=== PATIENT | male | born 1960 | race Caucasian/White ===

== ENCOUNTER 2023-11-12 16:41 | Inpatient (IN) | payer MEDICARE, MEDICAID ==
[~2023-11-12] VITALS: Ht 180.3 cm; Wt 95.5 kg
[2023-11-12] MEDS ORDERED: fentaNYL 50 MCG/ML 2 ML VIAL IV ONE (17:00)
[2023-11-12] MEDS ORDERED: oxyCODONE 5 MG TAB PO PRN (19:15)
[2023-11-12] MEDS ORDERED: Naloxone 0.4 MG/ML VIAL IV PRN (19:15)
[2023-11-12] MEDS ORDERED: HYDROmorphone 0.5 MG/0.5 ML SYRINGE IV PRN (19:15)
[2023-11-12 19:25] LABS: BASO # 0.1 K/mm3 (0.0-0.2); BASO % 0.5 % (0.0-2.0); EOS # 0.1 K/mm3 (0.0-0.7); EOS % 1.1 % (0.0-4.0); GRAN # 9.4 K/mm3 (1.4-6.5); GRAN % 76.1 % (42.2-75.2); HEMATOCRIT 40.9 % (42.0-52.0); LYMPH % 16.5 % (20.0-51.0); MEAN CELL VOLUME 88 fl (80.0-100.0); MEAN CORPUSCULAR HEMOGLOBIN 28 pg (27-31); MEAN CORPUSCULAR HGB CONC 32 g/dl (33.0-37.0); MEAN PLATELET VOLUME 10.2 fl (7.4-10.4); MONO # 0.7 K/mm3 (0.1-0.6); MONO % 5.3 % (1.7-9.3); PLATELET COUNT 221 K/mm3 (130-400); RED BLOOD COUNT 4.67 M/mm3 (4.20-5.60); REDCELL DISTRIBUTION WIDTH-CV 14.4 % (11.5-14.5)
[2023-11-12] MEDS ORDERED: HYDROmorphone 0.5 MG/0.5 ML SYRINGE IV ONE (19:30)
[2023-11-12] MEDS ORDERED: VOLTAREN 75 DR75 MG PO (19:31)
[2023-11-12] MEDS ORDERED: CAPOTEN 12.512.5 MG PO (19:31)
[2023-11-12] MEDS ORDERED: LOPRESSOR 550 MG/TAB PO (19:32)
[2023-11-12] MEDS ORDERED: DESYREL 50MG50 MG PO (19:32)
[2023-11-12] MEDS ORDERED: FLEXERIL 1010 MG/TAB PO (19:32)
[2023-11-12] MEDS ORDERED: LIPITOR 80MG80 MG PO (19:32)
[2023-11-12] MEDS ORDERED: XARELTO20 MG PO (19:33)
[2023-11-12] MEDS ORDERED: ZETIA 10MG TAB10 MG PO (19:33)
[2023-11-12] MEDS ORDERED: ZOLOFT 100MG100 MG PO (19:33)
[2023-11-12] MEDS ORDERED: SEROQUEL50 MG PO (19:33)
[2023-11-12] MEDS ORDERED: ASPIRIN 81M81 MG/TA2 PO (19:37)
[2023-11-12] MEDS ORDERED: FERROUSAL325 MG PO (19:38)
[2023-11-12 19:41] LABS: ALBUMIN 4.2 g/dL (3.4-4.8); BILIRUBIN,TOTAL 0.4 mg/dL (0.2-1.2); CALCIUM 9.2 mg/dL (8.4-10.2); CREATININE, serum 1.23 mg/dL (0.72-1.25); POTASSIUM 5.3 mEq/L (3.5-4.5); TOTAL PROTEIN 7.3 g/dl (6.2-8.1)
[2023-11-12] MEDS ORDERED: Cyclobenzaprine 10 MG TAB PO PRN (19:45)
[2023-11-12] MEDS ORDERED: Acetaminophen 500 MG TAB PO SCH (20:15)
[2023-11-12 21:00] LABS: INR 1.4 (0.8-3.0); PROTHROMBIN TIME 14.7 SECONDS (9.7-12.8)
[2023-11-12] MEDS ORDERED: Metoprolol Tartrate 50 MG TAB PO SCH (21:00)
[2023-11-12] MEDS ORDERED: Atorvastatin 80 MG TAB PO SCH (21:00)
[2023-11-12] MEDS ORDERED: QUEtiapine 25 MG TAB PO SCH (21:00)
[2023-11-12] MEDS ORDERED: traZODone 100 MG TAB PO SCH (21:00)
[2023-11-13] VITALS (10 sets, daily range): BP systolic 134–203; BP diastolic 66–94; PULSE 62–89; TEMP 97.4–98.1
[2023-11-13] MEDS ORDERED: Ezetimibe 10 MG TAB PO SCH (09:00)
[2023-11-13] MEDS ORDERED: Ferrous Sulfate 325 MG TAB PO SCH (09:00)
[2023-11-13] MEDS ORDERED: Sertraline 100 MG TAB PO SCH (09:00)
[2023-11-13 10:46] LABS: COLLECTION METHOD CLEAN CATCH
[2023-11-13] MEDS ORDERED: hydrALAZINE 20 MG/ML 1 ML VIAL IV PRN (11:00)
[2023-11-13 11:02] LABS: PH 5.5 (5.0-8.5); URINE APPEARANCE CLEAR (CLEAR/HAZY); URINE BLOOD NEGATIVE (NEGATIVE); URINE COLOR YELLOW (YELLOW); URINE GLUCOSE NEGATIVE (NEGATIVE); URINE KETONE NEGATIVE (NEGATIVE); URINE NITRATE NEGATIVE (NEGATIVE); URINE PROTEIN(semi-quant) NEGATIVE (NEGATIVE); URINE UROBILINOGEN 0.2 E.U/dL (0.2-1.0)
--- NOTE | 2023-11-13 11:06 | NUR ---
PATIENT ARRIVED TO FLOOR FROM ED @ 0930. BP ELEVATED SEE CHART. PATIENT COMPLIANING OF PAIN 8/10 PAIN MEDS AND MORNING MEDS GIVEN ORDERED. ADMISSION, ASSESSMENT, AND MED REC COMPLETED. PATIENT HAS NO OTHER NEEDS AT THIS TIME. CALL LIGHT IN REACH
[2023-11-13] MEDS ORDERED: Regadenoson 0.08 MG/ML 5 ML SYRINGE IV SCH (13:40)
[2023-11-13] MEDS ORDERED: HYDROmorphone 0.5 MG/0.5 ML SYRINGE IV PRN (16:30)
--- NOTE | 2023-11-13 16:39 | NUR ---
ARM SLING APPLIED TO RT ARM.
--- NOTE | 2023-11-13 21:00 | NUR ---
BP 203/76. BASSAM ROJAS NOTIFIED. OKAY TO GIVE SECOND DOSE OF HYDRALAZINE IV PRN NOW. WILL MONITOR. THE PATIENT IS REFUSING PAIN MEDICATIONS AT THIS TIME. THE PATIENT WAS EDUCATED REGARDING THE NEED FOR PAIN CONTROL AND THE SIDE EFFECTS OF PAIN ARE HYPERTENSION. THE PATIENT STILL REFUSED PAIN MEDIATION INTERVENTIONS AT THIS TIME. WILL MONITOR.
[2023-11-14] VITALS (9 sets, daily range): BP systolic 103–158; BP diastolic 59–90; PULSE 66–95; TEMP 97.5–98.4
--- NOTE | 2023-11-14 06:30 | NUR ---
BASSAM Fierro called and stated that pt will not go to surgery until tomorrow 11/14 around 0730. Notified primary nurse of this
--- NOTE | 2023-11-14 06:36 | NUR ---
THE PATIENTS BP CAME DOWN WITH PRN HYDRALAZINE AND PO SCHEDULED METOPROLOL AND PAIN CONTROL. THE PATIENT RESTED WELL ALL NIGHT AND RATED HIS PAIN THIS MORNING AT 5/10. THE PATIENT IS HOPING TO TRANSFER TO [facility] TODAY AND WOULD LIKE TO TALK WITH THE DOCTOR ABOUT IT TODAY. THE PATIENT WAS MADE NPO OVER NIGHT WITH THE THOUGHT THAT HE MAY HAVE SURGERY TODAY. CURRENTLY THE PATIENT IS COMFORTABLE AND RESTING IN BED. THE BED ALARM IS ON, BED IS IN THE LOW POSITION AND THE CALL LIGHT IS WITHIN REACH.
[2023-11-14 06:37] LABS: BASO % 0.3 % (0.0-2.0); EOS % 0.3 % (0.0-4.0); GRAN # 7.2 K/mm3 (1.4-6.5); GRAN % 64.8 % (42.2-75.2); HEMOGLOBIN 11.9 g/dl (13.5-18.0); LYMPH # 2.5 K/mm3 (1.2-3.4); LYMPH % 22.8 % (20.0-51.0); MEAN CELL VOLUME 85 fl (80.0-100.0); MEAN CORPUSCULAR HEMOGLOBIN 28 pg (27-31); MEAN CORPUSCULAR HGB CONC 33 g/dl (33.0-37.0); MEAN PLATELET VOLUME 10.5 fl (7.4-10.4); MONO # 1.3 K/mm3 (0.1-0.6); MONO % 11.5 % (1.7-9.3); PLATELET COUNT 200 K/mm3 (130-400); RED BLOOD COUNT 4.24 M/mm3 (4.20-5.60); REDCELL DISTRIBUTION WIDTH-CV 14.7 % (11.5-14.5)
[2023-11-14 06:42] LABS: HEMATOCRIT 35.9 % (42.0-52.0)
[2023-11-14 06:49] LABS: ALBUMIN 3.7 g/dL (3.4-4.8); BILIRUBIN,TOTAL 0.6 mg/dL (0.2-1.2); CALCIUM 9.1 mg/dL (8.4-10.2); CREATININE, serum 0.99 mg/dL (0.72-1.25); MAGNESIUM 2.1 mg/dL (1.6-2.6); POTASSIUM 3.9 mEq/L (3.5-4.5); TOTAL PROTEIN 6.8 g/dl (6.2-8.1)
--- NOTE | 2023-11-14 09:27 | NUR ---
SHIFT ASSESSMENT COMPLETE. VSS. PATIENT AWAKE IN BED WATCHING TV. ALL MORNING MEDS GIVEN ORDERED. PATIENT REPORTED BURNING PAIN 6/10 IN THE RIGHT LEG, PAIN MEDS GIVEN ORDERED. PATIENT HAS NO OTHER CONCERNS AT THIS TIME. FALL PRECAUTIONS IN PLACE AND CALL LIGHT IN REACH
--- NOTE | 2023-11-14 11:14 | NUR ---
electronics utility worker met with patient to discuss discharge planning. Patient expressed he was wanting to transfer to [place] to complete his surgery. SW spoke with patient regarding the cost of transferring would likely be out of pocket depending on his insurance. Patient stated he would stay at [facility] for his surgery and would like to return to [place] afterwards. SW explained patient would be evaluated by PT after surgery to determine if he needs rehab at a facility before returning home. SW discussed IPR and SNF, patient was open to [facility] if needed. SW explained she would follow up regarding PT recommendations after his surgery. SW completed assessment with patient. Patient lives in [place] by himself. Patient's sister, Lynn, P# [phone] is his next of kin. PCP is at the [facility], Pharmacy is [facility] or [facility]. No issues affording medications. Insurance is Medicare Aetna. NO DPOA-HC. No DME and reports to be independent with ADLS prior to hospitalization. Patient has a form of transportation to and from appointments. Patient would like to return home if possible at discharge but is open to [place] [facility] or facilities in [place] for rehab. Discharge plan: TBD surgery, PT/OT recommendations
[2023-11-14] MEDS ORDERED: LR 1,000 ML IV SCH (16:30)
[2023-11-15] VITALS (17 sets, daily range): BP systolic 108–186; BP diastolic 53–100; PULSE 54–98; TEMP 97.6–99.8
[2023-11-15] MEDS ORDERED: LR 1,000 ML IV SCH (04:00)
[2023-11-15 06:09] LABS: BASO # 0.1 K/mm3 (0.0-0.2); BASO % 0.5 % (0.0-2.0); EOS # 0.5 K/mm3 (0.0-0.7); EOS % 4.5 % (0.0-4.0); GRAN # 6.4 K/mm3 (1.4-6.5); GRAN % 58.6 % (42.2-75.2); HEMATOCRIT 37.6 % (42.0-52.0); HEMOGLOBIN 12.2 g/dl (13.5-18.0); LYMPH # 2.7 K/mm3 (1.2-3.4); LYMPH % 24.6 % (20.0-51.0); MEAN CELL VOLUME 85 fl (80.0-100.0); MEAN CORPUSCULAR HEMOGLOBIN 28 pg (27-31); MEAN CORPUSCULAR HGB CONC 32 g/dl (33.0-37.0); MEAN PLATELET VOLUME 10.6 fl (7.4-10.4); MONO # 1.3 K/mm3 (0.1-0.6); MONO % 11.5 % (1.7-9.3); PLATELET COUNT 183 K/mm3 (130-400); RED BLOOD COUNT 4.42 M/mm3 (4.20-5.60); REDCELL DISTRIBUTION WIDTH-CV 14.6 % (11.5-14.5)
--- NOTE | 2023-11-15 06:15 | NUR ---
THE PATIENT RESTED WELL ALL NIGHT. WHEN PAIN MEDICATIONS START TO WEAR OFF THE PATIENTS PAIN INCREASES TO 8/10. THE PATIENT HAS BEEN NPO SINCE MIDNIGHT FOR HIS SURGER TODAY. NO OTHER DIFFICULTIES NOTED.
[2023-11-15 06:20] LABS: ALBUMIN 3.6 g/dL (3.4-4.8); BILIRUBIN,TOTAL 0.6 mg/dL (0.2-1.2); CALCIUM 9.1 mg/dL (8.4-10.2); POTASSIUM 4.4 mEq/L (3.5-4.5); TOTAL PROTEIN 6.8 g/dl (6.2-8.1)
--- NOTE | 2023-11-15 06:45 | NUR ---
Pt laying in bed and transported to OR via bed. Off floor for surgery.
[2023-11-15] MEDS ORDERED: fentaNYL 50 MCG/ML 2 ML VIAL ONE (06:46)
[2023-11-15] MEDS ORDERED: Midazolam 2 MG/2 ML VIAL ONE (06:46)
[2023-11-15] MEDS ORDERED: Lidocaine PF 2% (20 MG/ML) 5 ML VIAL ONE (06:48)
[2023-11-15] MEDS ORDERED: dexAMETHasone 10 MG/ML VIAL ONE (06:53)
[2023-11-15] MEDS ORDERED: Ondansetron 4 MG/2 ML VIAL ONE (07:37)
[2023-11-15] MEDS ORDERED: HYDROmorphone 1 MG/1 ML SYRINGE [PACU/SDC ONLY] IV PRN (08:00)
[2023-11-15] MEDS ORDERED: Morphine 2 MG/1 ML VIAL [PACU/SDC ONLY] IV PRN (08:00)
[2023-11-15] MEDS ORDERED: Meperidine 50 MG/ML 1 ML VIAL IV PRN (08:00)
[2023-11-15] MEDS ORDERED: Ondansetron 4 MG/2 ML VIAL IV PRN ×2 (08:00→10:15)
[2023-11-15] MEDS ORDERED: fentaNYL 50 MCG/ML 1 ML SYRINGE/VIAL [PACU/SDC ONLY] IV PRN (08:00)
[2023-11-15] MEDS ORDERED: droPERidol 2.5 MG/ML 2 ML VIAL IV PRN (08:00)
[2023-11-15] MEDS ORDERED: ePHEDrine 50 MG/ML VIAL ONE (08:10)
[2023-11-15] MEDS ORDERED: HYDROmorphone 2 MG/1 ML VIAL ONE (08:39)
--- NOTE | 2023-11-15 09:50 | NUR ---
Pt back from PACU. Monitoring VS. Assessment complete. Pt refusing food at this time. Drinking water. Call light in reach.
[2023-11-15] MEDS ORDERED: Mag/Al Hydrox/Simeth Susp 30 ML CUP PO PRN (10:15)
[2023-11-15] MEDS ORDERED: Naloxone 0.4 MG/ML VIAL IV PRN (10:15)
[2023-11-15] MEDS ORDERED: diphenhydrAMINE 50 MG/ML 1 ML VIAL IV PRN (10:15)
[2023-11-15] MEDS ORDERED: diphenhydrAMINE 25 MG CAP PO PRN (10:15)
[2023-11-15] MEDS ORDERED: Magnes Hydrox (MOM) 80 MG/ML 30 ML CUP PO PRN (10:15)
[2023-11-15] MEDS ORDERED: Docusate Sodium 100 MG CAP PO PRN (10:15)
[2023-11-15] MEDS ORDERED: Morphine 4 MG/ML VIAL IV PRN (10:15)
[2023-11-15] MEDS ORDERED: HYDROcodone/Acetaminophen 7.5-325 MG TAB PO PRN (10:15)
--- NOTE | 2023-11-15 10:22 | NUR ---
Pt A&Ox4, a little sleepy but stays awake during conversation. VSS. S1S2. Clear lungs on 2 L via NC. ABD round, soft, non-tender with audible bowel sounds. Palpable pulses in all extremities. IV in L AC with LRS. Murguia catheter in place with clear, yellow urine. R knee CDI, aquacell dressing. Knee imobilizer on. SCDs on Bilaterally. Pt denies pain, n/v, headaches at this time. Continuing to monitor VS. No further needs at this time. Call light in reach.
--- NOTE | 2023-11-15 14:42 | NUR ---
DIDACTIC PROGRAM IN DIETETICS DIRECTOR met with pt bedside to f/u with PT recommendations of post acute rehab. Per chart review, pt is open to [facility]. DIDACTIC PROGRAM IN DIETETICS DIRECTOR spoke with pt who appears to still be drowsy. DIDACTIC PROGRAM IN DIETETICS DIRECTOR edcuated pt on the different types of rehab. Pt still open to [facility] but then also mentioned [facility] which only does home health. Pt requested over night to think about his different options and make some phone calls. DIDACTIC PROGRAM IN DIETETICS DIRECTOR will f/u tomorrow. D/C: pending pt decision
[2023-11-15] MEDS ORDERED: oxyCODONE 5 MG TAB PO PRN (15:30)
[2023-11-15] MEDS ORDERED: Acetaminophen 325 MG TAB PO PRN (15:30)
--- NOTE | 2023-11-15 15:43 | NUR ---
Tele monitor called this RN to notify Pt's HR increased to 141. This RN checked on Pt. Pt talkeing on phone. HR decreased down to 120s after hanging up phone. Tele monitor called this RN to notify Pt is now in A-fib. Pt's VSS. Dr Lopez notified. Received orders for Lopressor. No further needs at this time. Call light in reach.
[2023-11-15] MEDS ORDERED: Metoprolol Tartrate 5 MG/5 ML VIAL IV ONE (15:45)
--- NOTE | 2023-11-15 15:58 | NUR ---
Pt tolerated IV Lopressor well. VS remained stable. Heart rate decreawsed to 100s.
[2023-11-15] MEDS ORDERED: ceFAZolin 2 G in Water For Injection,Sterile 20 ML IV SCH (16:00)
[2023-11-15] MEDS ORDERED: [UNRECOGNIZED DRUG - OTHER] PO SCH (21:00)
[2023-11-15] MEDS ORDERED: Melatonin 3 MG TAB PO PRN (21:00)
--- NOTE | 2023-11-15 21:40 | NUR ---
PATIENT ALERT AND ORIENTED X4. VSS WITH THE EXCEPTION OF BP BEING ELEVATED. PM MEDS ADMINISTERED. PATIENT REPORTS PAIN IN RLE, RATING PAIN 6/10, PRN MEDS NOT DUE. KNEE IMMOBILIZER TO RLE. OLIVA TO DD WITH PRADIP OUTPUT. IV TO LEFT AC INT AND FLUSHES WELL. NO FURTHER NEEDS. CALL LIGHT IN REACH. BED ALARM ON.
[2023-11-16] VITALS (12 sets, daily range): BP systolic 93–172; BP diastolic 58–83; PULSE 49–75; TEMP 98.1–98.3
[2023-11-16 06:15] LABS: HEMOGLOBIN 11.2 g/dl (13.5-18.0); MEAN CELL VOLUME 84 fl (80.0-100.0); MEAN CORPUSCULAR HEMOGLOBIN 28 pg (27-31); MEAN CORPUSCULAR HGB CONC 33 g/dl (33.0-37.0); MEAN PLATELET VOLUME 10.5 fl (7.4-10.4); PLATELET COUNT 199 K/mm3 (130-400); RED BLOOD COUNT 4.05 M/mm3 (4.20-5.60); REDCELL DISTRIBUTION WIDTH-CV 14.4 % (11.5-14.5)
--- NOTE | 2023-11-16 06:30 | NUR ---
Pt laying in bed. Denies needs at this time. CAll light in reach.
[2023-11-16 06:33] LABS: ALBUMIN 3.4 g/dL (3.4-4.8); BILIRUBIN,TOTAL 0.7 mg/dL (0.2-1.2); CALCIUM 8.6 mg/dL (8.4-10.2); CREATININE, serum 0.97 mg/dL (0.72-1.25); POTASSIUM 4.1 mEq/L (3.5-4.5); TOTAL PROTEIN 6.6 g/dl (6.2-8.1)
[2023-11-16 07:46] LABS: HYPOCHROMIA 1+; LYMPHOCYTE 11 % (20.0-51.0); NEUTROPHILS 85 % (42.0-75.2)
[2023-11-16 07:47] LABS: PLATELET ESTIMATE NORMAL (NORMAL); SCHISTOCYTES 1+
--- NOTE | 2023-11-16 09:06 | NUR ---
Pt A&Ox4. VSS. S1S2 on tele. Clear lungs on RA. ABD round, soft, non-tender with audible bowel sounds. Palpable pulses in all extremities. Pt denies pain, n/v, headache, dizziness at this time. Call light in reach and bed alarm on.
--- NOTE | 2023-11-16 09:30 | NUR ---
REFINISH TECHNICIAN met with Pt to deliver IMM. Placed on chart.
--- NOTE | 2023-11-16 20:00 | NUR ---
Assessment complete. A&Ox3. Denies nausea/shortness of breath. VS stable. Received oxycodone at 1915 with good results. TELE reporting SR. Currently on RA. Sling to left arm. Knee immobilizer on-aquacell in place-CDI. Left AC INT flushes without difficulty. Plan of care discussed for this shift to include meds/pain control/calling for questions/concerns. Verbalizes understanding. Call light in reach. WIll monitor.
[2023-11-17] VITALS (12 sets, daily range): BP systolic 120–163; BP diastolic 66–81; PULSE 51–73; TEMP 98–98.8
--- NOTE | 2023-11-17 00:20 | NUR ---
Patient called with c/o pain to right lower ext-rating pain 8/10 on pain scale. Oxycodone given per dr order. Will monitor.
[2023-11-17 06:41] LABS: BASO # 0.1 K/mm3 (0.0-0.2); BASO % 0.4 % (0.0-2.0); EOS # 0.1 K/mm3 (0.0-0.7); EOS % 1.2 % (0.0-4.0); GRAN # 7.8 K/mm3 (1.4-6.5); HEMOGLOBIN 11.5 g/dl (13.5-18.0); LYMPH # 2.4 K/mm3 (1.2-3.4); MEAN CELL VOLUME 83 fl (80.0-100.0); MEAN CORPUSCULAR HEMOGLOBIN 28 pg (27-31); MEAN CORPUSCULAR HGB CONC 33 g/dl (33.0-37.0); MEAN PLATELET VOLUME 10.5 fl (7.4-10.4); MONO # 1.2 K/mm3 (0.1-0.6); MONO % 10.1 % (1.7-9.3); PLATELET COUNT 211 K/mm3 (130-400); RED BLOOD COUNT 4.17 M/mm3 (4.20-5.60); REDCELL DISTRIBUTION WIDTH-CV 14.2 % (11.5-14.5)
[2023-11-17 06:51] LABS: HEMATOCRIT 34.6 % (42.0-52.0)
--- NOTE | 2023-11-17 06:52 | NUR ---
Patient had an uneventful night. Received oxycodone x2 for pain. Had ice pack for half of shift but then refused. Knee immobolizer in place. Removed sling and refused to reapply. States he is going home today and trying to get dressed. No other c/o at this time. WIll monitor.
[2023-11-17 07:14] LABS: ALBUMIN 3.3 g/dL (3.4-4.8); BILIRUBIN,TOTAL 0.7 mg/dL (0.2-1.2); CALCIUM 8.5 mg/dL (8.4-10.2); CREATININE, serum 0.98 mg/dL (0.72-1.25); MAGNESIUM 1.9 mg/dL (1.6-2.6); POTASSIUM 3.9 mEq/L (3.5-4.5); TOTAL PROTEIN 6.9 g/dl (6.2-8.1)
--- NOTE | 2023-11-17 08:05 | NUR ---
pt a&ox4 sitting up in bed. assisted to bathroom with walker and gait belt, pt NWB to RLE. knee immobilizer in place. aqaucell dressing is cdi. pt refusing arm sling, reports "i am pretty much healed." vss and tele in place. pt denies pain after pain medication dose this morning. scd placed to LLE. INT to left ac patent. pt denies needs at this time. call light in reach. fall precautions in place.
[2023-11-17] MEDS ORDERED: Metoprolol Tartrate 25 MG TAB PO SCH (12:00)
--- NOTE | 2023-11-17 16:17 | NUR ---
market research worker was notified by Anna at [facility] that they need OT evaluation to send to insurance. SW notified patient's nurse and doctor to place the order for OT. TOMASA met with patient and provided the Medicare.gov list of options for SNF and IPR. Patient is open to any option in [place] for whomever can accept him. TOMASA faxed updates to [facility] and left a message with Anna at [facility] stating that OT will evaluate him tomorrow and wanted to know if their doctor reviewed patient's case if they can accept. Discharge plan: IPR vs SNF
[2023-11-18] VITALS (13 sets, daily range): BP systolic 120–159; BP diastolic 56–81; PULSE 55–84; TEMP 98–98.5
[2023-11-18 06:55] LABS: BASO % 0.4 % (0.0-2.0); EOS # 0.3 K/mm3 (0.0-0.7); EOS % 3.5 % (0.0-4.0); GRAN # 6.3 K/mm3 (1.4-6.5); GRAN % 68.4 % (42.2-75.2); HEMOGLOBIN 11.9 g/dl (13.5-18.0); LYMPH # 1.7 K/mm3 (1.2-3.4); LYMPH % 18.1 % (20.0-51.0); MEAN CELL VOLUME 83 fl (80.0-100.0); MEAN CORPUSCULAR HEMOGLOBIN 28 pg (27-31); MEAN CORPUSCULAR HGB CONC 33 g/dl (33.0-37.0); MEAN PLATELET VOLUME 10.4 fl (7.4-10.4); MONO # 0.8 K/mm3 (0.1-0.6); MONO % 9.1 % (1.7-9.3); PLATELET COUNT 222 K/mm3 (130-400); REDCELL DISTRIBUTION WIDTH-CV 14.2 % (11.5-14.5)
[2023-11-18 07:02] LABS: HEMATOCRIT 35.8 % (42.0-52.0)
[2023-11-18 07:22] LABS: CALCIUM 9.1 mg/dL (8.4-10.2); POTASSIUM 4.2 mEq/L (3.5-4.5)
--- NOTE | 2023-11-18 07:55 | NUR ---
pt a&ox4 resting in bed, reports he slept very well last night. denies pain. aqaucell dressing is cdi. knee immobilizer in place. pt still refusing to wear arm sling, denies pain in elbow. pt skin clammy. bp 123/73, blood glucose 114. scds to ble. pt denies needs at this time. call light in reach. fall precautions in place.
--- NOTE | 2023-11-18 13:50 | NUR ---
cattle care worker received OT evaluation and faxed the evaluation along with the clinical updates for patient to [facility]. SW followed up with [facility] whom received the fax and their doctor approved they are just waiting on insurance authorization now which they have submitted. Discharge plan: [facility]- pending insurance authorization
--- NOTE | 2023-11-18 20:11 | NUR ---
Patient assessed at this time, see shift assessment, A/O, harleyell dressing to right leg, knee immobilizer on, agreeable to wear his arm sling to left arm at this time, called Tashi, the PA and it's okay to leave the IV out, denies further needs, call light and personal items within reach, will continue to monitor.
[2023-11-19] VITALS (12 sets, daily range): BP systolic 120–148; BP diastolic 60–88; PULSE 52–69; TEMP 97.6–99.4
--- NOTE | 2023-11-19 03:32 | NUR ---
Patient complained of pain on his right leg, PS of 8/10, medicated with [place], denies further needs, will continue to monitor.
--- NOTE | 2023-11-19 10:32 | NUR ---
TOMASA spoke with Dr. Yahir Gill who requested an update on pt. TOMASA advised per the notes it appears they are waiting on auth from [facility]. TOMASA left a voicemail to Anna at [facility].
--- NOTE | 2023-11-19 16:53 | NUR ---
Patient awake, alert and oriented. Denies shortness of breath or nausea, c/o knee pain but denies need for pain medication at this time. Bed in lowest position with call light within reach, bed alarm on.
--- NOTE | 2023-11-19 17:15 | NUR ---
bridge worker apprentice received a call from patient regarding his [facility] status. SW explained they were still waiting on insurance authorization. SW contacted [facility] and was informed they were still waiting on authorization. TOMASA sent an email to the Medicare [employer] textile machinery sales representative expressing the needs for expediating the authorization. TOMASA spoke with patient's sister whom expressed she would work on arranging transportation when patient's insurance comes back. Discharge plan: [facility]- Pending insurance
--- NOTE | 2023-11-19 22:41 | NUR ---
patient lying in bed, alert and oriented x4. denies chest pain and shortness of breath. no IV in place. refusing sling to left elbow, scabbing noted, right knee immobilization in place, dressing CDI. per request chay given for pain in right lower extremity rated 7/10. fall precautions in place, call light within reach. pt has no further needs, questions or concerns at this time
[2023-11-20] VITALS (12 sets, daily range): BP systolic 119–146; BP diastolic 51–88; PULSE 63–71; TEMP 97.5–98.8
--- NOTE | 2023-11-20 10:04 | NUR ---
PATIENT ALERT AND ORIENTED X4. VSS. PATIENT HERE FOR RIGHT TIB/FIB FX. PATIENT REPORTS PAIN 7/10, REQUESTS PAIN MEDICATION. PATIENT HAS NO IV. NO FURTHER NEEDS. CALL LIGHT IN REACH. BED ALARM ON.
--- NOTE | 2023-11-20 12:48 | NUR ---
drafting layout worker received a call from patient to discuss if he is able to go to [facility] yet. TOMASA explained we were waiting on insurance authorization still. TOMASA faxed clinical updates to [facility]. TOMASA was notified Anna at [facility] is coming to meet with patient. TOMASA met with Anna after her meeting with patient. Anna expressed they were still waiting on the authorization. Anna explained they would be able to transport patient whenever they get approval which she expressed she notified patient of this. TOMASA notified Dr. Gill of the above information. TOMASA received a call from patient's sister whom expressed they were working on arranging transportation. TOMASA explained they were still waiting on authorization from patient's insurance and she was notified that [facility] could transport him to their facility once they have approval. TOMASA explained once she is updated on insurance status, she will follow up with her. Discharge plan: [facility]- pending authorization
--- NOTE | 2023-11-20 13:19 | NUR ---
remelt worker met with pt to present IM from Medicare. He verbalized understanding and signed. Copy provided and original in chart.
[2023-11-21 00:17] VITALS: BP_SYST 119
--- NOTE | 2023-11-21 00:18 | NUR ---
patient lying in bed, alert and oriented x4. denies chest pain and shortness of breath. reports pain in RLE as 8/10, per request chay given, upon reassessment pt resting with eyes closed. refused sling to left upper extremity, scabbing noted, right knee immobilizer, all CDI. fall precautions in place, call light within reach. pt has no further needs, questions, or concerns at this time time.
[2023-11-21 03:50] VITALS: BP 145/85; PULSE 75; TEMP 98.1
[2023-11-21 03:58] VITALS: BP_SYST 145
[2023-11-21 07:06] VITALS: BP 110/54; PULSE 68; TEMP 98.4
--- NOTE | 2023-11-21 08:43 | NUR ---
drive worker was notified by Ravi vicente via email that patient's case was sent to the MD and they should be reviewing. SW updated patient's nurse and patient regarding this status. SW will continue to monitor.
[2023-11-21 09:00] VITALS: BP_SYST 110
--- NOTE | 2023-11-21 09:30 | NUR ---
PT RESTING IN BED ATE BREAKFAST. NO NAUSEA OR VOMITING. AWAITING TRANSFER TO SKILLED FACILITY PENDING INSURANCE APPROVAL.
--- NOTE | 2023-11-21 09:59 | NUR ---
bag worker was notified by Anna at [facility] that patient was denied by [facility]. TOMASA met with PT, Cyndi, whom has been working with patient to update and discuss discharge plan. Cyndi agreed patient would be okay to return home with home health services. TOMASA met with patient and discussed discharge plan. Patient is agreeable to return home with home health. TOMASA provided the Medicare.gov list of home health options. Patient stated he has a friend that is working on a roof in town that told him he could transport him back to [place] today if he was ready to go. Patient is reviewing home health options, medical social worker will follow up. TOMASA notified patient's nurse. Discharge plan: Home with home health
[2023-11-21] MEDS ORDERED: LOPRESSOR 225 MG/TAB PO (10:47)
[2023-11-21] MEDS ORDERED: NORCO 325 MG-7.1 TAB PO ×2 (10:50→11:47)
--- NOTE | 2023-11-21 12:14 | NUR ---
telephone worker was notified patient chose [facility]. SW faxed and secure emailed referral to [facility]. SW will follow up. Discharge plan: Home with home health
--- NOTE | 2023-11-21 13:14 | NUR ---
DISCHARGE INSTRUCTIONS REVIEWED WITH PT, QUESTIONS SOLICITED AND ANSWERED. PT LEFT UNIT PER WHEEL CHAIR WITH STAFF.
--- NOTE | 2023-11-21 13:16 | NUR ---
steamtable worker faxed walker order to [facility]. Patient's walker will be delivered before discharge today. SW followed up with [facility]. They are to call social service liaison back if they are able to accept/decline patient. Discharge plan: Home with Home Health
--- NOTE | 2023-11-21 13:34 | NUR ---
[facility] accepted patient for services.
== END 2023-11-21 13:15 | disposition home or self-care (01) | DRG 493 ==
LOC: COL.ER 16:41 → SURG 18:22
PROVIDERS: Nurse Practitioner Family; Physician Assistant; ADMIT Hospitalist
PROC: 0QSG04Z Reposition Right Tibia with Internal Fixation Device, Open Approach (ICD-10-PCS; principal; 2023-11-12)
DX: S82.141A Displaced bicondylar fracture of right tibia, initial encounter for closed fracture (principal); N17.9 Acute kidney failure, unspecified; W19.XXXA Unspecified fall, initial encounter; M25.422 Effusion, left elbow; D72.829 Elevated white blood cell count, unspecified; E78.5 Hyperlipidemia, unspecified; I25.10 Atherosclerotic heart disease of native coronary artery without angina pectoris; Z95.5 Presence of coronary angioplasty implant and graft; I48.91 Unspecified atrial fibrillation; I10 Essential (primary) hypertension
CPT/HCPCS: A4314; A6197; A9284; A9500-JZ; C1713; J0360; J0665-JZ; J0688; J0690; J1100; J1170; J2250; J2405; J2704; J2785; J3010; L1830; L1846